=== PATIENT | male | born 1995 | race American Indian/Alaskan Native ===

== ENCOUNTER 2024-11-18 15:31 | Outpatient (REF) | payer MEDICAID, SELFPAY ==
--- OUTSIDE RECORDS SUMMARY | 2024-11-18 16:46 | XMS_ITS | Encounter Summary ---
Author Organization [employer] Address [address] [place] [address] Care Team Providers Care Abrasive Water Jet Cutter Operator Name Role Phone Molly Pickett MD Primary Care Provider Encounter Details Date Type Department Care Team (Late st Contact Info) Description 11/17/2024 3:15 PM EDT Office Visit [facility] [address] [place] [address] Constanza Cook DMD Social History Tobacco Use Types Packs/Day Years Used Date Smoking Tobacco: Former Cigarettes Passive Smoke Exposure: Never Smokeless Tobacco: Never Alcohol Use Standard Drinks/Week Comments Not Currently 0 (1 standard drink = 0.6 oz pur e alcohol) Sex and Gender Information Value Date Recorded Sex Assigned at Male 04/21/2024 8:32 AM EDT Legal Sex Male 8:30 AM EDT Gender Identity Male 04/21/2024 8:32 AM EDT Sexual Orientation Straight 04/21/2024 8: 33 AM EDT documented as of this encounter Progress Notes * Constanza Cook DMD - 11/17/2024 3:15 PM EDT Dental procedures in this visit D9310 - CONSULTATION - DIAGNOSTIC SERVICE PROVIDED BY DENTIST OR PHYSICIAN OTHER THAN REQUESTING DENTIST OR PHYSICIAN (Completed) Service provider: Constanza Cook DMD Billing provider: Olman Rubin DDS D0270 - BITEWING - SINGLE RADIOGRAPHIC IMAGE (Completed) Service provider: Constanza Cook DMD Billing provider: Olman Rubin DDS D0220 - INTRAORAL - PERIAPICAL FIRST RADIOGRAPHIC IMAGE 18 (Completed) Service provider: Constanza Cook DMD Billing provider: Olman Rubin DDS D9450 - CASE PRESENTATION, DETAILED AND EXTENSIVE TREATMENT PLANNING (Completed) Service provider: Constanza Cook DMD Billing provider: Olman Rubin DDS Patient ID: Jeremi Vega is a 29 y.o. male. Time Out: Date: 11/17/2024 Location: [facility] Tooth: #18 Procedure: Exam and X-rays Verified the above with patient, personal banking assistant, and provider. Confirmed via patient's chart, intraorally and by radiographs. Board Lining Machine Operator: Yes. Language: Malay. Board Lining Machine Operator's Name: Mckayla Wilks 29 y.o. y/o male presents for consultation exam with Dr. Constanza Cook DMD Medical history: Reviewed in EHR Vitals: There were no vitals taken for this visit. Allergies: Reviewed in EHR Medications: Reviewed in EHR Radiographs taken: PA and BW CHIEF COMPLAINT: I was told I needed a consultation. Discussion: Patient presents to [facility] RE: ENDO consultation tooth #18. Tooth #18 presents with occlusal caries, and no periapical pathologies. Patient not experiencing any symptoms at this time. Upon clinical and radiographic examination with Dr. Rubin, recommended caries control and reassessment of endodontic therapy needs. Patient understands and accepts all treatment recommendations and wishes to move forward with proposed treatment plan. All patient questions answered. Patient comfortable upon dismissal. NV: Restorative // Caries Control #18 Provider: Dr. Constanza Cook DMD Dental Appliance Tester: Mckayla Wilks Attending: Dr. Olman Rubin DMD documented in this encounter Plan of Treatment Upcoming Encounters Date Type Department Care Team (Late st Contact Info) Description 11/28/2024 2:30 PM EDT Office Visit [facility] [address] [place] [address] Solo-Senait Merritt, DDS [address] [place] [address] 01/06/2025 10:00 AM EDT Office Visit [facility] [address] [place] [address] Lesly Rodarte [address] [place] [address] 01/09/2025 2:45 PM EDT Office Visit [facility] [address] [place] [address] Molly Pickett MD [address] [place] [address] 02/17/2025 10:30 AM EDT Office Visit [facility] [address] [place] [address] Molly Pickett MD [address] [place] [address] Scheduled Orders Name Type Priority Associated Diagnoses Orde r Schedule 18 O 18 O RESIN-BASED COMPOSITE - 1 SURF, POSTERIOR Dental Routine [address] arting 11/17/2024 documented as of this encounter Procedures Procedure Name Priority Date/Time Associated Diagnosis Comments 18 INTRAORAL - PERIAPICAL FIRST RADIOGRAPHIC IMAGE Routine 11/17/2024 3:15 PM EDT CONSULTATION - DIAGNOSTIC SERVICE PROVIDED BY DENTIST OR PHYSICIAN OTHER THAN REQUESTING DENTIST OR PHYSICIAN Routine 11/17/2024 3:15 PM EDT CASE PRESENTATION, DETAILED AND EXTENSIVE TREATMENT PLANNING Routine 11/17/2024 3:15 PM EDT BITEWING - SINGLE RADIOGRAPHIC IMAGE Routine 11/17/2024 3:15 PM EDT documented in this encounter Visit Diagnoses Not on filedocumented in this encounter Care Teams Abrasive Water Jet Cutter Operator Relationship Specialty Start Date End Date Molly Pickett MD [address] [place] [address] PCP - General Internal Medicine 10/13/24 documented as of this encounter
--- OUTSIDE RECORDS SUMMARY | 2024-11-18 16:46 | XMS_ITS | Continuity of Care Document ---
Author Organization [facility] Address [address] [place] [address] Phone Care Team Providers Care Train Station Agent Name Role Phone Unavailable Unavailable Unavailable Procedures Procedure Date Immunization Admin COVID-Moderna, 2nd Do se COVID- Moderna, Vaccine 100 MCG/0.5 ML I M USE Immunization Only Visit Immunization Admin COVID-Moderna, 1st Do se COVID- Moderna, Vaccine 100 MCG/0.5 ML I M USE Immunization Only Visit Advance Directives Directive Yes / No Effective Date File Name No Information Encounters Encounter Description Practice Location Reason(s) For Visit Diagnoses Date Provider Providers Copied on Encounter [facility], [address] [place] [address], [address], tel:[phone] [facility] Adult Medicine COVID-19 (chief complaint) Encounter for immunization 1 No Information [facility], [address] [place] [address], [address], tel:[phone] [facility] Adult Medicine COVID-19 (chief complaint) Encounter for immunization 1 No Information Family History Family Member Type Diagnosis Age At Onset No Information Immunizations Vaccine Date Status Comments SARS-COV-2 Moderna (COVID-19) administered Source: New Immuniza tion Record SARS-COV-2 Moderna (COVID-19) administered Source: New Immuniza tion Record Payers Payer name Insurance type Covered republican ID Authoriza tion(s) [facility] Social History Type Description Quantity Date Captured Comments Alcohol Use Details Unknown Caffeine Use Details Unknown Tobacco Use Status No Information Smoking Status No Information Sex Male Sexual Orientation Straight or heterosexual Jan Gender Identity Male Vital Signs Date / Time: Height Weight BMI Pulse Rate Blood Pressure Temperature Respiratory Rate Body Surface Area Head Circumference Head Circ. Percentile Wt./Phillip. Percentile BMI percentile Pulse Ox Inhaled Ox 1:45 PM 72 /min 115/77 mm[Hg] 97.70 F 100 % Chief Complaint And Reason For Visit From encounter dated '03/03/2021 13:00'. COVID-19 (chief complaint). Description: Patient presents for second dose of COVID-19 Vaccine.Vitalsigns: stable and within normal limitsPatient screened for: Allergies, allergies to ingredients, contraindications, and precautions - none present [facility] Pre-vaccination Checklist for COVID-19 Vaccine: C ompletedEducation: Patient educated about COVID-19 vaccination with teach backEducation: Patient informed that [facility] is providing behavioral health services for psychosocial support and/or dealing withstress related to the COVID-19 pandemic Reason For Referral Reason For Referral No Information History Of Present Illness Encounter Date Complaint History Of Prese nt Illness COVID-19 Patient presents for second dose of COVID-19 Vaccine.Vital signs: stable and within normal limitsPatient screened for: Allergies, allergies to ingredients, contraindications, and precautions - none present [facility] Pre-vaccination Checklist for COVID-19 Vaccine: CompletedEducation: Patient educated about COVID-19 vaccination with teach backEducation: Patient informed that [facility] is providing behavioral health services for psychosocial support and/or dealing with stress related to the COVID-19 pandemic COVID-19 Patient presents for first dose of COVID-19 Vaccine.Vital signs: stable and within normal limitsPatient screened for: Allergies, allergies to ingredients, contraindications, and precautions - none present [facility] Pre-vaccination Checklist for COVID-19 Vaccine: CompletedEducation: Patient educated about COVID-19 vaccination with teach backEducation: Patient informed that [facility] is providing behavioral health services for psychosocial support and/or dealing with stress related to the COVID-19 pandemic Functional Status Date Functional Assessmen t No Information Instructions Date Instruction Additional Infor adriano Observation: Patient observed for at least 15 minutes.Reaction: No adverse reaction.Materials: Patient given vaccination documentation card, VAERS reporting info, V-safe info and Moderna COVID-19 Emergency Use for Authorization (EUA) fact sheet.Instructions: Patient instructed how to monitor for signs and symptoms of an adverse vaccine reaction. Patient instructed to call PCP if adverse reaction occurs. Patient instructed to always call 911 for any life-threatening emergencies or situations.Instructions: This was a COVID-19 vaccination visit only; patient instructed to schedule a follow-up visit with primary care provider for further care. Related to Encounter for immunization Observation: Patient observed for at least 15 minutes.Reaction: No adverse reaction.Materials: Patient given vaccination documentation card, VAERS reporting info, V-safe info and Moderna COVID-19 Emergency Use for Authorization (EUA) fact sheet.Next Appointment: Patient discharged with second appointment scheduled.Instructions: Patient instructed how to monitor for signs and symptoms of an adverse vaccine reaction. Patient instructed to call PCP if adverse reaction occurs. Patient instructed to always call 911 for any life-threatening emergencies or situations.Instructions: This was a COVID-19 vaccination visit only; patient instructed to schedule a follow-up visit with primary care provider for further care. Related to Encounter for immunization Assessments Type Assessment Date assessment Encounter for immunization Patient Care Teams Name Effective Dates (start - stop) Status Members No Information
--- OUTSIDE RECORDS SUMMARY | 2024-11-18 16:46 | XMS_ITS | Encounter Summary ---
Author Organization [employer] Address [address] 7t [place] [address] Care Team Providers Care Supervisor Blast Furnace Name Role Phone Molly Pickett MD Primary Care Provider Encounter Details Date Type Department Care Team (Late st Contact Info) Description 11/18/2024 2:30 PM EDT Office Visit [facility] [address] [place], [place] [phone] Molly Pickett MD [address] [place] [address] Fixed drug eruption (Primary Dx); Dyspepsia; Dyspepsia Social History Tobacco Use Types Packs/Day Years [...] AM EDT documented as of this encounter Last Filed Vital Signs Vital Sign Reading Time Taken Comments Blood Pressure 123/76 11/18/2024 2:37 PM EDT Pulse 64 11/18/2024 2:37 PM EDT Temperature 36.6 ??C (97.8 ??F) 11/18/2024 2:37 PM ED T Respiratory Rate 20 11/18/2024 2:37 PM EDT Oxygen Saturation 99% 11/18/2024 2:37 PM EDT Inhaled Oxygen Concentration - - Weight 76.7 kg (169 lb) 11/18/2024 2:37 PM EDT Height 172.7 cm (5' 8 ) 11/18/2024 2:37 PM EDT Body Mass Index 25.7 11/18/2024 2:37 PM EDT documented in this encounter Plan of Treatment Upcoming Encounters Date Type Department Care Team (Late st Contact Info) Description 11/28/2024 2:30 PM EDT Office Visit [facility] [address] [place] [address] Banda-Merritt, Senait, DDS [address] [place] [address] 01/06/2025 10:00 AM EDT Office Visit [facility] [address] [place] [address] Aster, Lesly [address] [place] [address] 01/09/2025 2:45 PM EDT Office Visit [facility] [address] [place] [address] Molly Pickett MD [address] [place] [address] 02/17/2025 10:30 AM EDT Office Visit [facility] [address] [place] [address] Molly Pickett MD [address] [place] [address] Scheduled Orders Name Type Priority Associated Diagnoses Orde r Schedule CBC auto differential Lab Routine Fixed drug eruption Expected: 11/18/2024 (Approximate), Expires: 11/18/2025 Comprehensive Metabolic Panel Lab Routine Fixed drug eruption Expected: 11/18/2024 (Approximate), Expires: 11/18/2025 TSH W/Reflex to FT4 Lab Routine Fixed drug eruption Expected: 11/18/2024 (Approximate), Expires: 11/18/2025 HIV-1/2 Antigen and Antibodies, Fourth Generation, with Reflexes Lab Routine Fixed drug eruption Expected: 11/18/2024 (Approximate), Expires: 11/18/2025 Hepatitis C Antibody with Reflex to HCV, RNA, Quantitative, Real-Time PCR Lab Routine Fixed drug eruption Expected: 11/18/2024, Expires: 11/18/2025 RPR (Monitor) with Reflex to??Titer Lab Routine Fixed drug eruption Expected: 11/18/2024, Expires: 11/18/2025 documented as of this encounter Visit Diagnoses Diagnosis Fixed drug eruption- Primary Dermatitis due to drugs and medicines taken internally Dyspepsia Dyspepsia and other specified disorders of function of stomach documented in this encounter Care Teams Supervisor Blast Furnace Relationship Specialty Start Date End Date Molly Pickett MD [address] [place] [phone] PCP - General Internal Medicine 10/13/24 documented as of this encounter
--- OUTSIDE RECORDS SUMMARY | 2024-11-18 16:46 | XMS_ITS | Encounter Summary ---
Author Organization [employer] Address [address] [facility] 7 [place] [address] Care Team Providers Care Info Print Press Operator Name Role Phone Molly Pickett MD Primary Care Provider Encounter Details Date Type Department Care Team (Latest Contact Info) Description 11/18/2024 Travel Social History Tobacco Use Types Packs/Day Years [...] AM EDT documented as of this encounter Plan of Treatment Upcoming Encounters Date Type Department Care Team (Late st Contact Info) Description 11/28/2024 2:30 PM EDT Office Visit [facility] [address] [place] [address] Senait Montoya, DDS [address] [place] [address] 01/06/2025 10:00 AM EDT Office Visit [facility] [address] [place] [address] Lesly Rodarte [address] [place] [address] 01/09/2025 2:45 PM EDT Office Visit [facility] [address] [place] [address] Molly Pickett MD [address] [place], [place] [phone] 02/17/2025 10:30 AM EDT Office Visit [facility] [address] [place] [address] Molly Pickett MD [address] [place] [address] documented as of this encounter Visit Diagnoses Not on filedocumented in this encounter Care Teams Info Print Press Operator Relationship Specialty Start Date End Date Molly Pickett MD [address] [place] [address] PCP - General Internal Medicine 10/13/24 documented as of this encounter
--- OUTSIDE RECORDS SUMMARY | 2024-11-18 16:46 | XMS_ITS | Clinical Summary ---
Author Organization [employer] Address [address] [place] [address] Care Team Providers Care Blind Aide Name Role Phone Molly Pickett MD Primary Care Provider Allergies No known active allergies Medications acetaminophen (Tylenol) 500 MG tablet Take 1 tablet (500 mg) by mouth every 6 (six) hours if needed for mild pain for up to 20 doses. 20 tablet 04/21/20 24 Active ibuprofen 600 MG tablet Take 1 tablet (600 mg) by mouth every 6 (six) hours if needed for mild pain for up to 20 doses. 20 tablet 04/21/20 24 Active Sodium Fluoride (PreviDent 5000 Plus) 1.1 % cream Apply 1 mg to teeth 3 times daily. 1 g 3 06/24/20 24 Active mometasone (Elocon) 0.1 % ointment Apply topically Once per day. 45 g 2 08/27/19 25 026 Active Omeprazole 20 MG tablet delayed-releas eIndications:D yspepsia,Dyspe psia Take 1 tablet (20 mg) by mouth Once per day. 30 tablet 1 11/19/19 25 Active Omeprazole 20 MG tablet delayed-releas eIndications:D yspepsia Take 1 tablet (20 mg) by mouth Once per day. 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 Encounters Date Type Department Care Team Description 11/18/2024 2:30 PM EDT Office Visit [facility] [address] [place] [address] Molly Pickett MD Fixed drug eruption (Primary Dx); Dyspepsia; Dyspepsia 11/18/2024 Travel 11/17/2024 3:15 PM EDT Office Visit [facility] [address] [place] [address] Constanza Cook DMD 10/30/2024 1:30 PM EDT Office Visit [facility] [address] [place] [address] Banda-Merritt, Senait, DDS Full coverage crown needed for root canal-treated tooth (Primary Dx) 10/15/2024 Telephone [facility] [address] [place] [phone] Molly Pickett MD Follow up appt. 10/13/2024 6:20 PM EDT Office Visit [facility] [address] [place] [phone] Molly Pickett MD Dyspepsia (Primary Dx); Skin rash 10/13/2024 2:00 PM EDT Office Visit [facility] [address] [place] [address] Banda-Merritt, Senait, DDS Full coverage crown needed for root canal-treated tooth (Primary Dx) 09/25/2024 8:00 AM EDT Office Visit [facility] [address] [place] [address] Banda-Merritt, Senait, DDS Dental caries (Primary Dx); Full coverage crown needed for root canal-treated tooth 08/27/2024 11:20 AM EST Office Visit [facility] [address] [place] [address] Gamaliel Enriquez MD Rash (Primary Dx) 08/27/2024 8:00 AM EST Office Visit [facility] [address] [place] [address] Banda-Merritt, Senait, DDS Dental caries (Primary Dx); Symptomatic irreversible pulpitis from Last 3 Months Social History Tobacco Use Types Packs/Day Years Used Date Smoking Tobacco: Former Cigarettes Passive Smoke Exposure: Never Smokeless Tobacco: Never Tobacco Cessation:Counseling Given: Not Answered Alcohol Use Standard Drinks/Week Comments Not Currently 0 (1 standard drink = 0.6 oz pur e alcohol) Sex and Gender Information Value Date Recorded Sex Assigned at Male 04/21/2024 8:32 AM EDT Legal Sex Male 8:30 AM EDT Gender Identity Male 04/21/2024 8:32 AM EDT Sexual Orientation Straight 04/21/2024 8: 33 AM EDT Last Filed Vital Signs Vital Sign Reading [...] Mass Index 25.7 11/18/2024 2:37 PM EDT Plan of Treatment Upcoming Encounters Date Type Department Care Team (Late st Contact Info) Description 11/28/2024 2:30 PM EDT Office Visit [facility] [address] [place] [address] Senait Montoya, DDS [address] [place] [address] 01/06/2025 10:00 AM EDT Office Visit [facility] [address] [place] [address] Lesly Rodarte [address] [place] [address] 01/09/2025 2:45 PM EDT Office Visit [facility] [address] [place] [address] Molly Pickett MD [address] [place] [address] 02/17/2025 10:30 AM EDT Office Visit [facility] [address] [place], [place] [phone] Molly Pickett MD [address] [place] [address] Health Maintenance Due Date Last Done Comments Depression Screening 1997 HIV Screening 1997 SDOH Screening 1997 Alcohol/Substance Use Screening 2009 Family Planning (PISQ) 2012 Hepatitis C Screening 2015 DTaP/Tdap/Td Vaccines (1 - Tdap) 2016 Hepatitis B Vaccines (1 of 3 - 19+ 3-dose series) 2016 COVID-19 Vaccine ( - 2023-2 5 season) 2024 Influenza Vaccine (#1) 2024 Dental Oral Exam 01/06/2025 07/07/2024 Dental Prophylaxis 01/06/2025 07/07/2024 Tobacco Screening 10/13/2025 10/13/2024 Dental X-Ray: Bitewings 11/18/2025 11/18/19 25, 07/07/2024 Dental X-Ray: Full Mouth 07/08/2027 07/07/2024 Zoster Vaccines (1 of 2) 2047 RSV Patients and Patients Aged 60 years or older (1 - 1-dose 75+ series) 2072 HIB Vaccines Aged Out No longer eligi ble based on patient's age to complete this topic HPV Vaccines Aged Out No longer eligi ble based on patient's age to complete this topic Hepatitis A Vaccines Aged Out No long er eligible based on patient's age to complete this topic IPV Vaccines Aged Out No longer eligi ble based on patient's age to complete this topic Meningococcal Vaccine Aged Out No maureen junior eligible based on patient's age to complete this topic Pneumococcal Vaccine: Pediatrics (0 to 5 Years) and At-Risk Patients (6 to 49) Years) Aged Out No longer eligible b ased on patient's age to complete this topic RSV under 20 months Aged Out No longe r eligible based on patient's age to complete this topic Rotavirus Vaccines Aged Out No longer eligible based on patient's age to complete this topic Procedures Procedure Name Priority Date/Time Associated Diagnosis Comments CASE PRESENTATION, DETAILED AND EXTENSIVE TREATMENT PLANNING Routine 11/17/2024 3:15 PM EDT CONSULTATION - DIAGNOSTIC SERVICE PROVIDED BY DENTIST OR PHYSICIAN OTHER THAN REQUESTING DENTIST OR PHYSICIAN Routine 11/17/2024 3:15 PM EDT 18 INTRAORAL - PERIAPICAL FIRST RADIOGRAPHIC IMAGE Routine 11/17/2024 3:15 PM EDT BITEWING - SINGLE RADIOGRAPHIC IMAGE Routine 11/17/2024 3:15 PM EDT CASE PRESENTATION, DETAILED AND EXTENSIVE TREATMENT PLANNING Routine 10/30/2024 1:30 PM EDT Full coverage crown needed for root canal-treated tooth INTRAORAL - PERIAPICAL FIRST RADIOGRAPHIC IMAGE Routine 10/30/2024 1:30 PM EDT Full coverage crown needed for root canal-treated tooth 28 CROWN - PORCELAIN/CERAMIC Routine 10/30/2024 1:30 PM EDT Full coverage crown needed for root canal-treated tooth NO CHARGE PROCEDURE Routine 10/13/2024 2 :00 PM EDT Full coverage crown needed for root canal-treated tooth INTRAORAL - PERIAPICAL FIRST RADIOGRAPHIC IMAGE Routine 09/25/2024 8:00 AM EDT Dental caries Full coverage crown needed for root canal-treated tooth CASE PRESENTATION, DETAILED AND EXTENSIVE TREATMENT PLANNING Routine 09/25/2024 8:00 AM EDT Dental caries Full coverage crown needed for root canal-treated tooth 28 PREFABRICATED POST AND CORE IN ADDITION TO CROWN Routine 09/25/2024 8:00 AM EDT Dental caries Full coverage crown needed for root canal-treated tooth 28 CROWN PREP Routine 09/25/2024 8:00 AM EDT Dental caries Full coverage crown needed for root canal-treated tooth CASE PRESENTATION, DETAILED AND EXTENSIVE TREATMENT PLANNING Routine 08/27/2024 8:00 AM EST Dental caries Symptomatic irreversible pulpitis 28 ENDODONTIC THERAPY, PREMOLAR TOOTH Routine 08/27/2024 8:00 AM EST Dental caries Symptomatic irreversible pulpitis PROPHYLAXIS - ADULT Routine 07/07/2024 1 0:00 AM EST Dental plaque INTRAORAL - COMPLETE SERIES OF RADIOGRAPHIC IMAGES Routine 07/07/2024 10:00 AM EST Tipped teeth Dental caries Dental plaque COMPREHENSIVE ORAL EVALUATION - NEW OR ESTABLISHED PATIENT Routine 07/07/2024 10:00 AM EST from Last 3 Months or Most Recently Relevant to Health Maintenance [place] [facility] ADULT [facility]ENTAL - HSN FULL (MEDICAID) Care Teams Blind Aide Relationship Specialty Start Date End Date Molly Pickett MD [address] [place] [id number] PCP - General Internal Medicine 10/13/24
[2024-11-18 17:38] LABS: MANUAL DIFF FLAG NO
[2024-11-18 17:50] LABS: Basophils Percent Auto 0.4 % (0-2); Eosinophils Absolute Auto 0.3 X10*3/uL (0.0-0.4); Eosinophils Percent Auto 3.8 % (0-4); Hematocrit 44.1 % (42.0-52.0); Hemoglobin 15.3 g/dl (14.0-18.0); Imm Gran Abs Auto 0.01 X10*3/uL (0.00-0.03); Imm Gran Pct Auto 0.1 % (0.0-0.4); Lymphocytes Absolute Auto 3.3 X10*3/uL (1.2-4.9); Mean Corpuscular HGB Conc 34.7 g/dl (31.0-36.0); Mean Corpuscular Hemoglobin 29.6 pg (27.0-33.0); Mean Corpuscular Volume 85.3 fL (80.0-98.0); Mean Platelet Volume 9.4 fL (9.4-12.4); Monocytes Absolute Auto 0.4 X10*3/uL (0.1-1.2); Monocytes Percent Auto 4.8 % (2-11); Neutrophils Absolute Auto 3.5 x10*3/uL (2.0-8.3); Neutrophils Percent Auto 46.9 % (45-73); Platelet Count 246 X10*3/uL (160-400); Red Blood Count 5.17 X10*6/uL (4.60-5.80); Red Cell Distribution Width 13.1 % (11.0-16.0); White Blood Count 7.5 X10*3/uL (4.8-10.8)
[2024-11-18 19:03] LABS: Alanine Aminotransferase 25 U/L (0-40); Albumin Level 4.4 g/dL (3.5-5.0); Alkaline Phosphatase 75 U/L (39-117); Anion Gap 10 (12-20); Aspartate Amino Transferase 27 U/L (5-37); Bilirubin Total 0.3 mg/dL (0.0-1.0); Blood Urea Nitrogen 14 mg/dL (9-16); Calcium 9.2 mg/dL (8.4-10.2); Carbon Dioxide 26 mmol/L (22-29); Chloride 107 mmol/L (96-108); Estimated Glomerular Filt Rate > 60; Glucose Random 91 mg/dL (60-115); Potassium 3.9 mmol/L (3.3-5.1); Sodium 139 mmol/L (135-145); Total Protein 7.4 g/dL (6.5-8.0)
[2024-11-18 19:18] LABS: TSH reflex Free T4 2.43 uIU/mL (0.32-4.0)
[2024-11-19 05:07] LABS: HIV AB/AG Nonreactive (Nonreactive); HIV Num 1 0.06 S/CO (0.00-0.99); ~Hepatitis C Antibody Nonreactive (Nonreactive)
[2024-11-19 12:03] LABS: RPR Rapid Plasma Reagin NON-REACTIVE (NON-REACTIVE)
== END 2024-11-18 15:32 | disposition home or self-care (01) ==
LOC: HO.CHCLDS 15:31
PROVIDERS: Visit Provider Internal Medicine
DX: L27.1 Localized skin eruption due to drugs and medicaments taken internally (principal)
CPT/HCPCS: 36415; 80053; 84443; 85025; 86592; 86803; 87389